=== PATIENT | male | born 1970 | race Caucasian/White ===

== ENCOUNTER 2017-10-04 11:43 | Emergency (ER) | payer SELFPAY ==
[~2017-10-04] VITALS: Ht 172.7 cm; Wt 81.8 kg
[2017-10-04 11:53] VITALS: Ht 172.7 cm; Wt 81.8 kg
[2017-10-04] MEDS ORDERED: LEVEMIR100 U/M1 SC (11:55)
[2017-10-04] MEDS ORDERED: NOVOLOG100 U/M1 SC (11:55)
[2017-10-04 12:07] LABS: BASOPHILS 0.2 % (0-2); EOSINOPHILS 3.2 % (0-7); HEMATOCRIT 46.8 % (42.0-54.0); IMMATURE GRANULOCYTES 0.1 % (0-5); LYMPHOCYTES 32.2 % (15-50); MCH 29.2 pg (26.0-34.0); MCHC 36.3 g/dL (31.0-37.0); MCV 80.4 fL (80.0-100.0); MEAN PLATELET VOLUME 9.4 fL (7.4-10.4); MONOCYTES 4.8 % (2-11); NEUTROPHILS 59.5 % (40-80); PLATELET COUNT 233 10x3/uL (130-400); RBC 5.82 10x6/uL (4.20-6.10); RDW 13.5 % (11.5-14.5); WBC 8.2 10x3/uL (4.8-10.8)
[2017-10-04 12:37] LABS: ALBUMIN 3.9 g/dL (3.4-5.0); ALKALINE PHOSPHATASE 68 U/L (46-116); ALT (SGPT) 26 U/L (10-68); BILIRUBIN - TOTAL 0.56 mg/dL (0.2-1.3); CALCIUM 8.9 mg/dL (8.5-10.1); CARBON DIOXIDE 24.2 mmol/L (21.0-32.0); CHLORIDE - SERUM 97 mmol/L (98-107); CKMB 1.5 U/L (0.0-3.6); CREATINE KINASE 92 UL (21-232); CREATININE - SERUM 1.2 mg/dL (0.6-1.3); POTASSIUM - SERUM 3.8 mmol/L (3.5-5.1); PRO BNP 15 pg/mL (0-125); PROTEIN - SERUM 7.7 g/dL (6.4-8.2); SODIUM 133 mmol/L (136-145); UREA NITROGEN 9 mg/dL (7-18); eGFR NON AFRICAN AMERICAN 69 mL/min (90-120)
[2017-10-04 12:38] LABS: CALC OSMOLALITY 288 mosm/kg (275-300); TROPONIN-I < 0.017 ng/mL (0.000-0.060)
[2017-10-04 12:43] LABS: GLUCOSE 535 mg/dL (74-106)
[2017-10-04] MEDS ORDERED: CIPRO500 MG PO (15:01)
[2017-10-04] MEDS ORDERED: TYLENOL W/CODEI1 TAB PO (15:01)
[2017-10-04 16:15] VITALS: BP 122/84
== END 2017-10-04 16:17 | disposition home or self-care (01) ==
LOC: D.ER 11:43
PROVIDERS: Family Medicine
DX: E11.8 Type 2 diabetes mellitus with unspecified complications (principal); J06.9 Acute upper respiratory infection, unspecified; F17.200 Nicotine dependence, unspecified, uncomplicated